=== PATIENT | female | born 1970 | race Caucasian/White ===

== ENCOUNTER → 2017-12-13 | Outpatient (CLI) | payer BC, OTHER ==
--- NOTE | 2017-12-13 10:58 | RAD ---
Pelvic ultrasound, 12/13/2017: History: Heavy periods with clotting Transabdominal and transvaginal scans were obtained. The uterus measures 10.7 x 6.4 x 4.6 cm. The central uterine echo complex measures 7 mm. There are several small nabothian cysts in the cervical region. The left ovary is within normal limits in size. It contains a single small 1 cm follicular cyst. There is blood flow in the left ovary. The right ovary is enlarged. It contains a cluster of 3 cysts. These cysts measure approximately 3.6 cm, 2.5 cm and 2.6 cm. No mural irregularity or suspicious features are seen. There is blood flow in the right ovary. The adnexal regions are otherwise unremarkable. No free fluid is evident in the pelvis. IMPRESSION: Multiple small right ovarian cysts.
== END | disposition home or self-care (01) ==
LOC: US 08:52
PROVIDERS: ATTEND Family Medicine
DX: N83.201 Unspecified ovarian cyst, right side (principal); N83.292 Other ovarian cyst, left side; N88.8 Other specified noninflammatory disorders of cervix uteri
CPT/HCPCS: 76830; 76856

== ENCOUNTER → 2018-05-13 | Outpatient (CLI) | payer BC, OTHER ==
--- NOTE | 2018-05-26 15:52 | RAD ---
DATE: May 13, 2018 EXAM: MAMMO KARINA SCREENING BILATERAL HISTORY: Screening study. COMPARISON: 2014 and 2016 This study was interpreted with the benefit of Computerized Aided Detection (CAD). 2-D digital mammographic views of both breasts were performed in the CC and MLO projections. 3-D digital tomosynthesis images of both breasts were performed in the CC and MLO projections and reviewed on a computer workstation. FINDINGS: Breast Density: SCATTERED The breast parenchyma shows scattered fibroglandular densities. Breast parenchyma level B.. There are no dominant suspicious masses, suspicious microcalcifications or evidence of architectural distortion. IMPRESSION: No mammographic indicators for malignancy. BI-RADS CATEGORY: 1 NEGATIVE RECOMMENDED FOLLOW-UP: 12M 12 MONTH FOLLOW-UP PQRS compliance statement: Patient information was entered into a reminder system with a target due date May 14, 2019 for the next mammogram. Mammography is a sensitive method for finding small breast cancers, but it does not detect them all and is not a substitute for careful clinical examination. A negative mammogram does not negate a clinically suspicious finding and should not result in delay in biopsying a clinically suspicious abnormality. "Our facility is accredited by the [employer] Mammography Program." The patient's breast density may affect the ability of mammography to detect breast cancer. There are 4 categories of breast density, A, B, C and D. Breast density A means that most of the breast tissue is replaced with adipose tissue and therefore is not dense. Breast density B means that the breast tissue is mildly dense and scattered. Breast density C means that the breast tissue is heterogeneously dense. Breast density D means that the breast tissue is very dense. Breast densities especially C and D may decrease the sensitivity of mammography to detect breast cancer. Therefore, the patient may benefit from 3-D breast mammography (3D breast tomography) as a part of their screening mammogram. Insurance may or may not pay for this additional imaging. The patient's breast density based on today's mammogram is category B.
== END | disposition home or self-care (01) ==
LOC: MAMMO 08:10
PROVIDERS: ATTEND Family Medicine
DX: Z12.31 Encounter for screening mammogram for malignant neoplasm of breast (principal)
CPT/HCPCS: 77063; 77067

== ENCOUNTER 2019-01-10 18:00 | Emergency (ER) | payer BC, OTHER ==
[~2019-01-10] VITALS: Ht 170.2 cm; Wt 84.0 kg
--- NOTE | 2019-01-10 18:05 | ED.ADGEN ---
Past History Past Medical History: Sinusitis Past Surgical History: Lumbar Laminectomy Adult General Chief Complaint Chief Complaint ".. I am having a headache, I probably only had 5 headaches in my life...this one woke me up at 4:30 in the morning...I ve had it all day.. even took some Excedrin..." HPI HPI Patient is a 48 year old female who presents with above hx and complaints of frontal headache since 4:30 Am. Pt. not had previous hx of chronic headaches. No travel, ill contacts, fever, chills or immunosuppression. Pt. follows with Dr. Meier. Review of Systems Review of Systems Constitutional: Denies fever or chills [] Eyes: Denies change in visual acuity, redness, or eye pain [] HENT: Denies nasal congestion or sore throat [] Respiratory: Denies cough or shortness of breath [] Cardiovascular: No additional information not addressed in HPI [] GI: Denies abdominal pain, nausea, vomiting, bloody stools or diarrhea [] : Denies dysuria or hematuria [] Musculoskeletal: Denies back pain or joint pain [] Integument: Denies rash or skin lesions [] Neurologic: Complaints of headache, denies focal weakness or sensory changes [] Endocrine: Denies polyuria or polydipsia [] All other systems were reviewed and found to be within normal limits, except as documented in this note. Family History Family History Non-contributory Current Medications Current Medications Current Medications Medications (Trade) Dose Ordered Sig/Tania Start Time Stop Time Status Last Admin Dose Admin Acyclovir Sodium (Zovirax) 500 mg STK-MED ONCE 01/11/19 01:13 01/11/19 01:14 DC Acyclovir Sodium 1000 mg/Dextrose 270 ml @ 270 mls/hr Q8HRS 01/11/19 06:00 01/11/19 06:00 DC 01/11/19 01:20 270 MLS/HR Ceftriaxone Sodium 1 gm/ Sodium Chloride 50 ml @ 100 mls/hr 1X ONCE 01/11/19 01:30 01/11/19 01:43 DC 01/11/19 01:30 100 MLS/HR Ceftriaxone Sodium (Rocephin) 1 gm STK-MED ONCE 01/11/19 00:01 01/11/19 00:02 DC Cephalexin HCl (Keflex) 250 mg 1X ONCE 01/10/19 23:00 01/10/19 23:10 DC Dextrose 250 ml @ As Directed STK-MED ONCE 01/11/19 01:13 01/11/19 01:14 DC Fentanyl Citrate (Fentanyl 2ml Vial) 50 mcg 1X ONCE 01/10/19 23:00 01/10/19 23:10 DC 01/10/19 23:04 50 MCG Ketorolac Tromethamine (Toradol 30mg Vial) 30 mg 1X ONCE 01/10/19 20:15 01/10/19 20:16 DC 01/10/19 23:03 30 MG Lidocaine HCl 20 ml 1X ONCE 01/10/19 23:15 01/10/19 23:16 DC Methylprednisolone Sodium Succinate (SOLU-Medrol 40MG VIAL) 40 mg 1X ONCE 01/10/19 20:15 01/10/19 20:16 DC 01/10/19 20:35 40 MG Morphine Sulfate (Morphine 2mg Syringe) 2 mg 1X ONCE 01/10/19 23:45 01/10/19 23:46 DC Morphine Sulfate (Morphine 4mg Syringe) 4 mg 1X ONCE 01/10/19 23:45 01/10/19 23:46 DC 01/11/19 00:12 4 MG Ondansetron HCl (Zofran) 8 mg 1X ONCE 01/10/19 18:30 01/10/19 18:34 DC 01/10/19 18:51 8 MG Sodium Chloride 50 ml @ As Directed STK-MED ONCE 01/11/19 00:01 01/11/19 00:02 DC Vancomycin HCl (Vancomycin) 1 gm STK-MED ONCE 01/11/19 00:01 01/11/19 00:02 DC Vancomycin HCl 1 gm/Sodium Chloride 250 ml @ 250 mls/hr 1X ONCE 01/10/19 23:45 01/11/19 00:44 DC 01/11/19 00:12 250 MLS/HR Allergies Allergies Allergies Coded Allergies Type Severity Reaction Last Updated Verified Penicillins Allergy Unknown 01/10/19 Yes Physical Exam Physical Exam Constitutional: , no acute distress, non-toxic appearance. [] HENT: Normocephalic, atraumatic, bilateral external ears normal, oropharynx moist, no oral exudates, nose normal. [] Eyes: PERRLA, EOMI, conjunctiva normal, no discharge. [] Neck: Normal range of motion, no tenderness, supple, no stridor. [] Cardiovascular:Heart rate regular rhythm, no murmur [] Lungs & Thorax: Bilateral breath sounds clear to auscultation [] Abdomen: Bowel sounds normal, soft, no tenderness, no masses, no pulsatile masses. [] Skin: Warm, dry, no erythema, no rash. [] Back: No tenderness, no CVA tenderness. [] Lumbar surgical scar Extremities: No tenderness, no cyanosis, no clubbing, ROM intact, no edema. [] Neurologic: Alert and oriented X 3, normal motor function, normal sensory function, no focal deficits noted. []DTR +2-3 Brachial and patella. Pt. riveter hand equal. Rt. hand dominate. Psychologic: Affect anxious, judgement normal, mood normal. [] Current Patient Data Vital Signs Vital Signs Date Time Temp Pulse Resp B/P (MAP) Pulse Ox O2 Delivery O2 Flow Rate FiO2 01/11/19 00:20 68 24 128/76 (93) 98 Room Air 01/10/19 18:06 97.7 Lab Results Laboratory Tests Test 01/10/19 18:42 01/10/19 19:19 01/10/19 21:48 01/10/19 22:18 White Blood Count 6.4 x10^3/uL (4.0-11.0) Red Blood Count 4.32 x10^6/uL (3.50-5.40) Hemoglobin 10.2 g/dL (12.0-15.5) L Hematocrit 32.5 % (36.0-47.0) L Mean Corpuscular Volume 75 fL (79-100) L Mean Corpuscular Hemoglobin 24 pg (25-35) L Mean Corpuscular Hemoglobin Concent 31 g/dL (31-37) Red Cell Distribution Width 15.5 % (11.5-14.5) H Platelet Count 304 x10^3/uL (140-400) Neutrophils (%) (Auto) 60 % (31-73) Lymphocytes (%) (Auto) 30 % (24-48) Monocytes (%) (Auto) 8 % (0-9) Eosinophils (%) (Auto) 1 % (0-3) Basophils (%) (Auto) 2 % (0-3) Neutrophils # (Auto) 3.8 x10^3uL (1.8-7.7) Lymphocytes # (Auto) 1.9 x10^3/uL (1.0-4.8) Monocytes # (Auto) 0.5 x10^3/uL (0.0-1.1) Eosinophils # (Auto) 0.1 x10^3/uL (0.0-0.7) Basophils # (Auto) 0.1 x10^3/uL (0.0-0.2) Erythrocyte Sedimentation Rate 18 (0-25) Troponin I Quantitative < 0.017 ng/mL (0-0.055) Prothrombin Time 10.8 SEC (9.4-11.4) Prothrombin Time INR 1.1 (0.9-1.1) PTT 25 SEC (23-33) Sodium Level 141 mmol/L (136-145) Potassium Level 3.8 mmol/L (3.5-5.1) Chloride Level 105 mmol/L (98-107) Carbon Dioxide Level 27 mmol/L (21-32) Anion Gap 9 (6-14) Blood Urea Nitrogen 13 mg/dL (7-20) Creatinine 0.8 mg/dL (0.6-1.0) Estimated GFR (Cockcroft-Gault) 75.9 Glucose Level 90 mg/dL (70-99) Calcium Level 8.8 mg/dL (8.5-10.1) Magnesium Level 2.1 mg/dL (1.8-2.4) Creatine Kinase 50 U/L (26-192) HM-Rek-R-Type Natriuretic Peptide 145 pg/mL (0-124) H Urine Collection Type Unknown Urine Color Yellow Urine Clarity Hazy Urine pH 6.0 Urine Specific [place] 1.015 Urine Protein Neg (NEG-TRACE) Urine Glucose (UA) Neg mg/dL (NEG) Urine Ketones (Stick) 15 mg/dL (NEG) Urine Blood Mod (NEG) Urine Nitrite Neg (NEG) Urine Bilirubin Neg (NEG) Urine Urobilinogen Dipstick 0.2 mg/dL (0.2 mg/dL) Urine Leukocyte Esterase Neg (NEG) Urine RBC Occ /HPF (0-2) Urine WBC 0 /HPF (0-4) Urine Squamous Epithelial Cells Occ /LPF Urine Bacteria 0 /HPF (0-FEW) Urine Opiates Screen Neg (NEG) Urine Methadone Screen Neg (NEG) Urine Barbiturates Neg (NEG) Urine Phencyclidine Screen Neg (NEG) Urine Amphetamine/Methamphetamine Neg (NEG) Urine Benzodiazepines Screen Neg (NEG) Urine Cocaine Screen Neg (NEG) Urine Cannabinoids Screen Neg (NEG) Urine Ethyl Alcohol Neg (NEG) CSF Tube Number 4 CSF Volume 11.0 CSF Color Colorless CSF Clarity Clear CSF WBC 4 CSF RBC 12 CSF Glucose 57 mg/dL (37-70) CSF Total Protein 30.8 mg/dL (15.0-45.0) Microbiology 01/10/19 Gram Stain - Final, Complete Microbiology 01/10/19 Gram Stain - Final, Complete EKG EKG My interpretation of EKG shows a sinus 70, no acute morphology. [] Radiology/Procedures Radiology/Procedures My interpretation of CT of head shows no shift, mass, edema, bleed, or fracture. My interpretation of chest x-ray shows findings. Lumbar film shows prior fix ation L4-S1 L5 S1 with sacral iliac fixation.[] Course & Med Decision Making Course & Med Decision Making Pertinent Labs and Imaging studies reviewed. (See chart for details) Procedure note- spinal tap- reviewed risk and benefits of procedure. Prepped area of L1-2 and 3 with Betadine and sterile draping. Sterile technique used with gown and mask gloves facemask. L3 interspace obtained aliquots of spinal fluid. Opening pressure was 30 with pleural variation of 2. Discussed presentation, testing and tx. plan with - [facility]. Transfer to [facility] for possible Cerebral angiogram, MRI With and Without contrast. [] Final Impression Final Impression 1. Headache[] 2. Microcytic Hypochromic Anemia 3. Spinal WBC 4/12 RBC 4. Sphenoid Sinusitis Dragon Disclaimer Dragon Disclaimer This electronic medical record was generated, in whole or in part, using a voice recognition dictation system. Discharge Summary Visit Information Final Diagnosis Problems Medical Problems: (1) Headache Status: Acute (2) Sphenoid sinusitis Status: Acute Brief Hospital Course Allergies Allergies Coded Allergies Type Severity Reaction Last Updated Verified Penicillins Allergy Unknown 01/10/19 Yes Vital Signs Vital Signs Date Time Temp Pulse Resp B/P (MAP) Pulse Ox O2 Delivery O2 Flow Rate FiO2 01/11/19 00:20 68 24 128/76 (93) 98 Room Air 01/10/19 18:06 97.7 Lab Results Laboratory Tests Test 01/10/19 18:42 01/10/19 19:19 01/10/19 21:48 01/10/19 22:18 White Blood Count 6.4 x10^3/uL (4.0-11.0) Red Blood Count 4.32 x10^6/uL (3.50-5.40) Hemoglobin 10.2 g/dL (12.0-15.5) Hematocrit 32.5 % (36.0-47.0) Mean Corpuscular Volume 75 fL (79-100) Mean Corpuscular Hemoglobin 24 pg (25-35) Mean Corpuscular Hemoglobin Concent 31 g/dL (31-37) Red Cell Distribution Width 15.5 % (11.5-14.5) Platelet Count 304 x10^3/uL (140-400) Neutrophils (%) (Auto) 60 % (31-73) Lymphocytes (%) (Auto) 30 % (24-48) Monocytes (%) (Auto) 8 % (0-9) Eosinophils (%) (Auto) 1 % (0-3) Basophils (%) (Auto) 2 % (0-3) Neutrophils # (Auto) 3.8 x10^3uL (1.8-7.7) Lymphocytes # (Auto) 1.9 x10^3/uL (1.0-4.8) Monocytes # (Auto) 0.5 x10^3/uL (0.0-1.1) Eosinophils # (Auto) 0.1 x10^3/uL (0.0-0.7) Basophils # (Auto) 0.1 x10^3/uL (0.0-0.2) Erythrocyte Sedimentation Rate 18 (0-25) Troponin I Quantitative < 0.017 ng/mL (0-0.055) Prothrombin Time 10.8 SEC (9.4-11.4) Prothromb Time International Ratio 1.1 (0.9-1.1) Activated Partial Thromboplast Time 25 SEC (23-33) Sodium Level 141 mmol/L (136-145) Potassium Level 3.8 mmol/L (3.5-5.1) Chloride Level 105 mmol/L (98-107) Carbon Dioxide Level 27 mmol/L (21-32) Anion Gap 9 (6-14) Blood Urea Nitrogen 13 mg/dL (7-20) Creatinine 0.8 mg/dL (0.6-1.0) Estimated GFR (Cockcroft-Gault) 75.9 Glucose Level 90 mg/dL (70-99) Calcium Level 8.8 mg/dL (8.5-10.1) Magnesium Level 2.1 mg/dL (1.8-2.4) Creatine Kinase 50 U/L (26-192) NB-Qsh-T-Type Natriuretic Peptide 145 pg/mL (0-124) Urine Collection Type Unknown Urine Color Yellow Urine Clarity Hazy Urine pH 6.0 Urine Specific [place] 1.015 Urine Protein Neg (NEG-TRACE) Urine Glucose (UA) Neg mg/dL (NEG) Urine Ketones (Stick) 15 mg/dL (NEG) Urine Blood Mod (NEG) Urine Nitrite Neg (NEG) Urine Bilirubin Neg (NEG) Urine Urobilinogen Dipstick 0.2 mg/dL (0.2 mg/dL) Urine Leukocyte Esterase Neg (NEG) Urine RBC Occ /HPF (0-2) Urine WBC 0 /HPF (0-4) Urine Squamous Epithelial Cells Occ /LPF Urine Bacteria 0 /HPF (0-FEW) Urine Opiates Screen Neg (NEG) Urine Methadone Screen Neg (NEG) Urine Barbiturates Neg (NEG) Urine Phencyclidine Screen Neg (NEG) Urine Amphetamine/Methamphetamine Neg (NEG) Urine Benzodiazepines Screen Neg (NEG) Urine Cocaine Screen Neg (NEG) Urine Cannabinoids Screen Neg (NEG) Urine Ethyl Alcohol Neg (NEG) CSF Tube Number 4 CSF Volume 11.0 CSF Color Colorless CSF Clarity Clear CSF WBC 4 CSF RBC 12 CSF Glucose 57 mg/dL (37-70) CSF Total Protein 30.8 mg/dL (15.0-45.0) Brief Hospital Course Ms. Francis is a 48 old female who presented with intractable headache acute on set. Transfer to [facility]- for Angiogram,MRI. Discharge Information Condition at Discharge: Stable Dischare Medications Current Medications Ondansetron HCl (Zofran) 8 mg 1X ONCE IV Last administered on 01/10/19at 18:51; Admin Dose 8 MG; Start 01/10/19 at 18:30; Stop 01/10/19 at 18:34; Status DC Fentanyl Citrate (Fentanyl 2ml Vial) 75 mcg 1X ONCE IV Last administered on 01/10/19at 18:51; Admin Dose 75 MCG; Start 01/10/19 at 18:30; Stop 01/10/19 at 18:34; Status DC Fentanyl Citrate (Fentanyl 2ml Vial) 50 mcg 1X ONCE IV Last administered on 01/10/19at 19:40; Admin Dose 50 MCG; Start 01/10/19 at 19:45; Stop 01/10/19 at 19:46; Status DC Ketorolac Tromethamine (Toradol 30mg Vial) 30 mg 1X ONCE IV Last administered on 01/10/19at 23:03; Admin Dose 30 MG; Start 01/10/19 at 20:15; Stop 01/10/19 at 20:16; Status DC Ceftriaxone Sodium 1 gm/ Sodium Chloride 50 ml @ 100 mls/hr 1X ONCE IV Last administered on 01/10/19at 20:37; Admin Dose 100 MLS/HR; Start 01/10/19 at 20:15; Stop 01/10/19 at 20:44; Status DC Methylprednisolone Sodium Succinate (SOLU-Medrol 40MG VIAL) 40 mg 1X ONCE IV Last administered on 01/10/19at 20:35; Admin Dose 40 MG; Start 01/10/19 at 20:15; Stop 01/10/19 at 20:16; Status DC Sodium Chloride 50 ml @ As Directed STK-MED ONCE .ROUTE ; Start 01/10/19 at 20:29; Stop 01/10/19 at 20:30; Status DC Ceftriaxone Sodium (Rocephin) 1 gm STK-MED ONCE .ROUTE ; Start 01/10/19 at 20:30; Stop 01/10/19 at 20:31; Status DC Lidocaine HCl 20 ml 1X ONCE IJ ; Start 01/10/19 at 21:00; Stop 01/10/19 at 21:01; Status DC Fentanyl Citrate (Fentanyl 2ml Vial) 50 mcg 1X ONCE IV Last administered on 01/10/19at 21:06; Admin Dose 50 MCG; Start 01/10/19 at 21:00; Stop 01/10/19 at 21:01; Status DC Lidocaine HCl 20 ml 1X ONCE IJ ; Start 01/10/19 at 23:15; Stop 01/10/19 at 23:16; Status DC Cephalexin HCl (Keflex) 250 mg 1X ONCE PO ; Start 01/10/19 at 23:00; Stop 01/10/19 at 23:10; Status DC Fentanyl Citrate (Fentanyl 2ml Vial) 50 mcg 1X ONCE IV Last administered on 01/10/19at 23:04; Admin Dose 50 MCG; Start 01/10/19 at 23:00; Stop 01/10/19 at 23:10; Status DC Morphine Sulfate (Morphine 2mg Syringe) 2 mg 1X ONCE IV ; Start 01/10/19 at 23:45; Stop 01/10/19 at 23:46; Status DC Morphine Sulfate (Morphine 4mg Syringe) 4 mg 1X ONCE IV Last administered on 01/11/19at 00:12; Admin Dose 4 MG; Start 01/10/19 at 23:45; Stop 01/10/19 at 23:46; Status DC Ceftriaxone Sodium 1 gm/ Sodium Chloride 50 ml @ 100 mls/hr 1X ONCE IV ; Start 01/10/19 at 23:45; Stop 01/11/19 at 00:22; Status DC Acyclovir Sodium 1000 mg/Dextrose 270 ml @ 270 mls/hr Q8HRS IV Last administered on 01/11/19at 01:20; Admin Dose 270 MLS/HR; Start 01/11/19 at 06:00; Stop 01/11/19 at 06:00; Status DC Vancomycin HCl 1 gm/Sodium Chloride 250 ml @ 250 mls/hr 1X ONCE IV Last administered on 01/11/19at 00:12; Admin Dose 250 MLS/HR; Start 01/10/19 at 23:45; Stop 01/11/19 at 00:44; Status DC Sodium Chloride 250 ml @ As Directed STK-MED ONCE .ROUTE ; Start 01/11/19 at 00:01; Stop 01/11/19 at 00:02; Status DC Sodium Chloride 50 ml @ As Directed STK-MED ONCE .ROUTE ; Start 01/11/19 at 00:01; Stop 01/11/19 at 00:02; Status DC Vancomycin HCl (Vancomycin) 1 gm STK-MED ONCE .ROUTE ; Start 01/11/19 at 00:01; Stop 01/11/19 at 00:02; Status DC Ceftriaxone Sodium (Rocephin) 1 gm STK-MED ONCE .ROUTE ; Start 01/11/19 at 00:01; Stop 01/11/19 at 00:02; Status DC Acyclovir Sodium (Zovirax) 500 mg STK-MED ONCE IV ; Start 01/11/19 at 01:13; Stop 01/11/19 at 01:14; Status DC Dextrose 250 ml @ As Directed STK-MED ONCE IV ; Start 01/11/19 at 01:13; Stop 01/11/19 at 01:14; Status DC Ceftriaxone Sodium 1 gm/ Sodium Chloride 50 ml @ 100 mls/hr 1X ONCE IV Last administered on 01/11/19at 01:30; Admin Dose 100 MLS/HR; Start 01/11/19 at 01:30; Stop 01/11/19 at 01:43; Status DC Active Scripts Active Keflex (Cephalexin) 500 Mg Capsule 500 Mg PO TID 10 Days Discharge Summary Visit Information Final Diagnosis Problems Medical Problems: (1) Headache Status: Acute (2) Sphenoid sinusitis Status: Acute Brief Hospital Course Allergies Allergies Coded Allergies Type Severity Reaction Last Updated Verified Penicillins Allergy Unknown 01/10/19 Yes Vital Signs Vital Signs Date Time Temp Pulse Resp B/P (MAP) Pulse Ox O2 Delivery O2 Flow Rate FiO2 01/11/19 00:20 68 24 128/76 (93) 98 Room Air 01/10/19 18:06 97.7 Lab Results Laboratory Tests Test 01/10/19 18:42 01/10/19 19:19 01/10/19 21:48 01/10/19 22:18 White Blood Count 6.4 x10^3/uL (4.0-11.0) Red Blood Count 4.32 x10^6/uL (3.50-5.40) Hemoglobin 10.2 g/dL (12.0-15.5) Hematocrit 32.5 % (36.0-47.0) Mean Corpuscular Volume 75 fL (79-100) Mean Corpuscular Hemoglobin 24 pg (25-35) Mean Corpuscular Hemoglobin Concent 31 g/dL (31-37) Red Cell Distribution Width 15.5 % (11.5-14.5) Platelet Count 304 x10^3/uL (140-400) Neutrophils (%) (Auto) 60 % (31-73) Lymphocytes (%) (Auto) 30 % (24-48) Monocytes (%) (Auto) 8 % (0-9) Eosinophils (%) (Auto) 1 % (0-3) Basophils (%) (Auto) 2 % (0-3) Neutrophils # (Auto) 3.8 x10^3uL (1.8-7.7) Lymphocytes # (Auto) 1.9 x10^3/uL (1.0-4.8) Monocytes # (Auto) 0.5 x10^3/uL (0.0-1.1) Eosinophils # (Auto) 0.1 x10^3/uL (0.0-0.7) Basophils # (Auto) 0.1 x10^3/uL (0.0-0.2) Erythrocyte Sedimentation Rate 18 (0-25) Troponin I Quantitative < 0.017 ng/mL (0-0.055) Prothrombin Time 10.8 SEC (9.4-11.4) Prothromb Time International Ratio 1.1 (0.9-1.1) Activated Partial Thromboplast Time 25 SEC (23-33) Sodium Level 141 mmol/L (136-145) Potassium Level 3.8 mmol/L (3.5-5.1) Chloride Level 105 mmol/L (98-107) Carbon Dioxide Level 27 mmol/L (21-32) Anion Gap 9 (6-14) Blood Urea Nitrogen 13 mg/dL (7-20) Creatinine 0.8 mg/dL (0.6-1.0) Estimated GFR (Cockcroft-Gault) 75.9 Glucose Level 90 mg/dL (70-99) Calcium Level 8.8 mg/dL (8.5-10.1) Magnesium Level 2.1 mg/dL (1.8-2.4) Creatine Kinase 50 U/L (26-192) EC-Whd-R-Type Natriuretic Peptide 145 pg/mL (0-124) Urine Collection Type Unknown Urine Color Yellow Urine Clarity Hazy Urine pH 6.0 Urine Specific [place] 1.015 Urine Protein Neg (NEG-TRACE) Urine Glucose (UA) Neg mg/dL (NEG) Urine Ketones (Stick) 15 mg/dL (NEG) Urine Blood Mod (NEG) Urine Nitrite Neg (NEG) Urine Bilirubin Neg (NEG) Urine Urobilinogen Dipstick 0.2 mg/dL (0.2 mg/dL) Urine Leukocyte Esterase Neg (NEG) Urine RBC Occ /HPF (0-2) Urine WBC 0 /HPF (0-4) Urine Squamous Epithelial Cells Occ /LPF Urine Bacteria 0 /HPF (0-FEW) Urine Opiates Screen Neg (NEG) Urine Methadone Screen Neg (NEG) Urine Barbiturates Neg (NEG) Urine Phencyclidine Screen Neg (NEG) Urine Amphetamine/Methamphetamine Neg (NEG) Urine Benzodiazepines Screen Neg (NEG) Urine Cocaine Screen Neg (NEG) Urine Cannabinoids Screen Neg (NEG) Urine Ethyl Alcohol Neg (NEG) CSF Tube Number 4 CSF Volume 11.0 CSF Color Colorless CSF Clarity Clear CSF WBC 4 CSF RBC 12 CSF Glucose 57 mg/dL (37-70) CSF Total Protein 30.8 mg/dL (15.0-45.0) Brief Hospital Course Ms. Francis is a 48 old female who presented with intractable headache. Transfer to [facility] for angiogram and MRI Discharge Information Dischare Medications Current Medications Ondansetron HCl (Zofran) 8 mg 1X ONCE IV Last administered on 01/10/19 18:51; Admin Dose 8 MG; Start 01/10/19 at 18:30; Stop 01/10/19 at 18:34; Status DC Fentanyl Citrate (Fentanyl 2ml Vial) 75 mcg 1X ONCE IV Last administered on 01/10/19 18:51; Admin Dose 75 MCG; Start 01/10/19 at 18:30; Stop 01/10/19 at 18:34; Status DC Fentanyl Citrate (Fentanyl 2ml Vial) 50 mcg 1X ONCE IV Last administered on 01/10/19 19:40; Admin Dose 50 MCG; Start 01/10/19 at 19:45; Stop 01/10/19 at 19:46; Status DC Ketorolac Tromethamine (Toradol 30mg Vial) 30 mg 1X ONCE IV Last administered on 01/10/19at 23:03; Admin Dose 30 MG; Start 01/10/19 at 20:15; Stop 01/10/19 at 20:16; Status DC Ceftriaxone Sodium 1 gm/ Sodium Chloride 50 ml @ 100 mls/hr 1X ONCE IV Last administered on 01/10/19at 20:37; Admin Dose 100 MLS/HR; Start 01/10/19 at 20:15; Stop 01/10/19 at 20:44; Status DC Methylprednisolone Sodium Succinate (SOLU-Medrol 40MG VIAL) 40 mg 1X ONCE IV Last administered on 01/10/19at 20:35; Admin Dose 40 MG; Start 01/10/19 at 20:15; Stop 01/10/19 at 20:16; Status DC Sodium Chloride 50 ml @ As Directed STK-MED ONCE .ROUTE ; Start 01/10/19 at 20:29; Stop 01/10/19 at 20:30; Status DC Ceftriaxone Sodium (Rocephin) 1 gm STK-MED ONCE .ROUTE ; Start 01/10/19 at 20:30; Stop 01/10/19 at 20:31; Status DC Lidocaine HCl 20 ml 1X ONCE IJ ; Start 01/10/19 at 21:00; Stop 01/10/19 at 21:01; Status DC Fentanyl Citrate (Fentanyl 2ml Vial) 50 mcg 1X ONCE IV Last administered on 01/10/19at 21:06; Admin Dose 50 MCG; Start 01/10/19 at 21:00; Stop 01/10/19 at 21:01; Status DC Lidocaine HCl 20 ml 1X ONCE IJ ; Start 01/10/19 at 23:15; Stop 01/10/19 at 23:16; Status DC Cephalexin HCl (Keflex) 250 mg 1X ONCE PO ; Start 01/10/19 at 23:00; Stop 01/10/19 at 23:10; Status DC Fentanyl Citrate (Fentanyl 2ml Vial) 50 mcg 1X ONCE IV Last administered on 01/10/19at 23:04; Admin Dose 50 MCG; Start 01/10/19 at 23:00; Stop 01/10/19 at 23:10; Status DC Morphine Sulfate (Morphine 2mg Syringe) 2 mg 1X ONCE IV ; Start 01/10/19 at 23:45; Stop 01/10/19 at 23:46; Status DC Morphine Sulfate (Morphine 4mg Syringe) 4 mg 1X ONCE IV Last administered on 01/11/19at 00:12; Admin Dose 4 MG; Start 01/10/19 at 23:45; Stop 01/10/19 at 23:46; Status DC Ceftriaxone Sodium 1 gm/ Sodium Chloride 50 ml @ 100 mls/hr 1X ONCE IV ; Start 01/10/19 at 23:45; Stop 01/11/19 at 00:22; Status DC Acyclovir Sodium 1000 mg/Dextrose 270 ml @ 270 mls/hr Q8HRS IV Last administered on 01/11/19at 01:20; Admin Dose 270 MLS/HR; Start 01/11/19 at 06:00; Stop 5/5/19 at 06:00; Status DC Vancomycin HCl 1 gm/Sodium Chloride 250 ml @ 250 mls/hr 1X ONCE IV Last administered on 01/11/19at 00:12; Admin Dose 250 MLS/HR; Start 01/10/19 at 23:45; Stop 01/11/19 at 00:44; Status DC Sodium Chloride 250 ml @ As Directed STK-MED ONCE .ROUTE ; Start 01/11/19 at 00:01; Stop 01/11/19 at 00:02; Status DC Sodium Chloride 50 ml @ As Directed STK-MED ONCE .ROUTE ; Start 01/11/19 at 00:01; Stop 01/11/19 at 00:02; Status DC Vancomycin HCl (Vancomycin) 1 gm STK-MED ONCE .ROUTE ; Start 01/11/19 at 00:01; Stop 01/11/19 at 00:02; Status DC Ceftriaxone Sodium (Rocephin) 1 gm STK-MED ONCE .ROUTE ; Start 01/11/19 at 00:01; Stop 01/11/19 at 00:02; Status DC Acyclovir Sodium (Zovirax) 500 mg STK-MED ONCE IV ; Start 01/11/19 at 01:13; Stop 01/11/19 at 01:14; Status DC Dextrose 250 ml @ As Directed STK-MED ONCE IV ; Start 01/11/19 at 01:13; Stop 01/11/19 at 01:14; Status DC Ceftriaxone Sodium 1 gm/ Sodium Chloride 50 ml @ 100 mls/hr 1X ONCE IV Last administered on 01/11/19at 01:30; Admin Dose 100 MLS/HR; Start 01/11/19 at 01:30; Stop 01/11/19 at 01:43; Status DC Active Scripts Active Keflex (Cephalexin) 500 Mg Capsule 500 Mg PO TID 10 Days Dragon Disclaimer This chart was dictated in whole or in part using Voice Recognition software in a busy, high-work load, and often noisy Emergency Department environment. It may contain unintended and wholly unrecognized errors or omissions. Dragon Disclaimer This chart was dictated in whole or in part using Voice Recognition software in a busy, high-work load, and often noisy Emergency Department environment. It may contain unintended and wholly unrecognized errors or omissions. STORMY OQUENDO MD January 10, 2019 18:05
[2019-01-10] MEDS ORDERED: ONDANSETRON PF 4 MG/2 ML VIAL. IV ONE (18:30)
[2019-01-10 19:05] LABS: BASO # 0.1 x10^3/uL (0.0-0.2); BASO % 2 % (0-3); EOS # 0.1 x10^3/uL (0.0-0.7); EOS % 1 % (0-3); HEMATOCRIT 32.5 % (36.0-47.0); HEMOGLOBIN 10.2 g/dL (12.0-15.5); LYMPH # 1.9 x10^3/uL (1.0-4.8); LYMPH % 30 % (24-48); MEAN CORPUSCULAR HEMOGLOBIN 24 pg (25-35); MEAN CORPUSCULAR HGB CONC 31 g/dL (31-37); MEAN CORPUSCULAR VOLUME 75 fL (79-100); MONO # 0.5 x10^3/uL (0.0-1.1); MONO % 8 % (0-9); NEUT # 3.8 x10^3uL (1.8-7.7); NEUT % 60 % (31-73); PLATELET COUNT 304 x10^3/uL (140-400); RED BLOOD COUNT 4.32 x10^6/uL (3.50-5.40); RED CELL DISTRIBUTION WIDTH 15.5 % (11.5-14.5); WHITE BLOOD COUNT 6.4 x10^3/uL (4.0-11.0)
--- NOTE | 2019-01-10 19:31 | RAD ---
EXAM: Chest, 2 views. HISTORY: Headache. COMPARISON: None. FINDINGS: 2 views of the chest are obtained. There is no infiltrate, pleural effusion or pneumothorax. IMPRESSION: No acute pulmonary finding. Electronically signed by: Sharron Schwartz MD (01/10/2019 7:28 PM) [facility]
--- NOTE | 2019-01-10 19:33 | RAD ---
EXAM: Head and maxillofacial bone CT without contrast. HISTORY: Headache. TECHNIQUE: Computed tomographic images of the head and maxillofacial bones were obtained without contrast. *One or more of the following individualized dose reduction techniques were utilized for this examination: 1. Automated exposure control. 2. Adjustment of the mA and/or kV according to patient size. 3. Use of iterative reconstruction technique. COMPARISON: None. FINDINGS: Head: There is no hemorrhage. There is no mass effect or midline shift. The scruggs-white matter differential pattern is intact. No suspicious calvarial lesion is seen. The mastoid air cells are clear. Maxillofacial bones: There is and mild sphenoid sinus mucosal thickening. The ostiomeatal units are patent. There is mild leftward nasal septal deviation. There is no sinus opacification or air-fluid level. There is no abnormal sinus wall thickening or erosion. The orbits are unremarkable. The visualized portions of the cervical spine demonstrate no acute or suspicious osseous lesion. IMPRESSION: 1. No acute intracranial finding. 2. Mild sphenoid sinus disease. Electronically signed by: Sharron Schwartz MD (01/10/2019 7:30 PM) [facility]
[2019-01-10 19:53] LABS: CALCIUM 8.8 mg/dL (8.5-10.1); CREATININE 0.8 mg/dL (0.6-1.0); GFR 75.9; MAGNESIUM 2.1 mg/dL (1.8-2.4); POTASSIUM 3.8 mmol/L (3.5-5.1)
[2019-01-10 20:02] LABS: SEDIMENTATION RATE 18 (0-25)
[2019-01-10] MEDS ORDERED: CEPH-264 PO (20:08)
[2019-01-10] MEDS ORDERED: KETOROLAC 30 MG/ML VIAL. IV ONE (20:15)
[2019-01-10] MEDS ORDERED: methylPREDNISolone SOD SUCC PF 40 MG/ML VIAL. IV ONE (20:15)
[2019-01-10] MEDS ORDERED: IV NORMAL SALINE 50ML 50 ML ONE (20:29)
[2019-01-10] MEDS ORDERED: cefTRIAXone SODIUM 1 GM VIAL ONE (20:30)
[2019-01-10] MEDS ORDERED: LIDOCAINE 2% 20 ML VIAL. IJ ONE ×2 (21:00→23:15)
--- NOTE | 2019-01-10 21:52 | RAD ---
Three view lumbosacral spine History: Pain AP, coned-down lateral and lateral views of the lumbosacral spine were obtained. There has been prior fusion of L4-S1 with left-sided protrusion posterior fusion rods. There is ray cages at L4-5 and L5-S1. There are 4 threaded screws to the right sacroiliac. The vertebral bodies are aligned. There is no loss of vertebral body stature. Intervertebral disc heights are preserved. Impression: Postsurgical changes. No acute findings. End Impression Electronically signed by: Reno Brown III, MD (01/10/2019 9:49 PM) [id number]
[2019-01-10 22:10] LABS: BACTERIA,URINE 0 /HPF (0-FEW); BILIRUBIN,URINE NEG (NEG); CLARITY,URINE HAZY; COLOR,URINE YELLOW; GLUCOSE,URINE NEG (NEG); NITRITE,URINE NEG (NEG); RBC,URINE OCC /HPF (0-2); SQUAMOUS EPITHELIAL CELL,UR OCC /LPF; UROBILINOGEN,URINE 0.2 mg/dL (0.2 mg/dL); WBC,URINE 0 /HPF (0-4)
[2019-01-10 22:14] LABS: AMPHETAMINE/METHAMPHETAMINE NEG (NEG); BARBITURATES NEG (NEG); BENZODIAZEPINES NEG (NEG); CANNABINOIDS NEG (NEG); COCAINE NEG (NEG); METHADONE NEG (NEG); OPIATES NEG (NEG); PHENCYCLIDINE NEG (NEG)
[2019-01-10] MEDS ORDERED: CEPHALEXIN 250 MG CAPSULE PO ONE (23:00)
[2019-01-10 23:07] LABS: CSF CLARITY CLEAR; CSF COLOR COLORLESS; CSF RBC COUNT 12; CSF WBC COUNT 4
[2019-01-10] MEDS ORDERED: VANCOMYCIN 1 GM in IV NORMAL SALINE 250ML 250 ML IV ONE (23:45)
[2019-01-10] MEDS ORDERED: MORPHINE SULFATE 2 MG/ML DISP.SYRIN. IV ONE (23:45)
[2019-01-10] MEDS ORDERED: MORPHINE SULFATE 4 MG/ML DISP.SYRIN. IV ONE (23:45)
[2019-01-10 23:49] LABS: CSF PROTEIN 30.8 mg/dL (15.0-45.0)
[2019-01-11] MEDS ORDERED: IV NORMAL SALINE 50ML 50 ML ONE (00:01)
[2019-01-11] MEDS ORDERED: VANCOMYCIN 1 GM VIAL. ONE (00:01)
[2019-01-11] MEDS ORDERED: cefTRIAXone SODIUM 1 GM VIAL ONE (00:01)
[2019-01-11] MEDS ORDERED: IV NORMAL SALINE 250ML 250 ML ONE (00:01)
[2019-01-11 00:20] VITALS: BP 128/76
[2019-01-11] MEDS ORDERED: IV DEXTROSE 5% 250 ML IV ONE (01:13)
[2019-01-11] MEDS ORDERED: ACYCLOVIR SODIUM 500 MG/10 ML VIAL IV ONE (01:13)
[2019-01-11] MEDS ORDERED: ACYCLOVIR SODIUM 1,000 MG in IV DEXTROSE 5% 250 ML IV SCH (06:00)
--- NOTE | 2019-01-12 06:55 | EKG ---
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
[2019-01-20 07:11] LABS: VIRAL CULT FINAL No virus isolated. (.)
== END 2019-01-11 01:38 | disposition short-term general hospital (02) ==
LOC: ER 18:00
DX: R51 Headache (principal); D50.9 Iron deficiency anemia, unspecified; J32.3 Chronic sphenoidal sinusitis; Z88.0 Allergy status to penicillin
CPT/HCPCS: 36415; 62270; 70450; 70486; 71046; 72100; 80048; 80307; 81001; 82550; 82945; 83735; 83880; 84157; 84484; 85025; 85610; 85651; 85730; 87040; 87070; 87102; 87252; 87327; 87449; 89051; 93005; 96365; 96367; 96375; 96376; 99285; J0133; J0696; J1885; J2270; J2405; J2920; J3010; J3370; J7050

== ENCOUNTER 2020-01-05 13:02 | Emergency (ER) | payer BC, OTHER ==
[~2020-01-05] VITALS: Ht 170.2 cm; Wt 84.0 kg
[~2020-01-05 13:02] MED LIST: CEPH-264 PO
[2020-01-05 13:43] LABS: BASO # 0.1 x10^3/uL (0.0-0.2); BASO % 3 % (0-3); EOS # 0.1 x10^3/uL (0.0-0.7); EOS % 4 % (0-3); HEMATOCRIT 29.3 % (36.0-47.0); HEMOGLOBIN 9.1 g/dL (12.0-15.5); LYMPH # 1.8 x10^3/uL (1.0-4.8); LYMPH % 50 % (24-48); MEAN CORPUSCULAR HEMOGLOBIN 25 pg (25-35); MEAN CORPUSCULAR HGB CONC 31 g/dL (31-37); MEAN CORPUSCULAR VOLUME 79 fL (79-100); MONO # 0.4 x10^3/uL (0.0-1.1); MONO % 10 % (0-9); NEUT # 1.2 x10^3uL (1.8-7.7); NEUT % 34 % (31-73); PLATELET COUNT 260 x10^3/uL (140-400); RED BLOOD COUNT 3.72 x10^6/uL (3.50-5.40); RED CELL DISTRIBUTION WIDTH 15.5 % (11.5-14.5); WHITE BLOOD COUNT 3.6 x10^3/uL (4.0-11.0)
[2020-01-05 13:53] LABS: CALCIUM 8.3 mg/dL (8.5-10.1); CREATININE 0.7 mg/dL (0.6-1.0); GFR 88.2; POTASSIUM 3.8 mmol/L (3.5-5.1)
[2020-01-05] MEDS ORDERED: IV NORMAL SALINE 1,000ML 1,000 ML IV ONE (14:00)
[2020-01-05 14:02] LABS: ALBUMIN 3.2 g/dL (3.4-5.0); ALBUMIN/GLOBULIN RATIO 0.9 (1.0-1.7); TOTAL BILIRUBIN 0.4 mg/dL (0.2-1.0); TOTAL PROTEIN 6.7 g/dL (6.4-8.2)
--- NOTE | 2020-01-05 14:14 | PHYS DOC ---
Past History Past Medical History: Kidney Infection, Kidney Stones, Sinusitis, Other Additional Past Medical Histor: Chronic back pain Past Surgical History: Lumbar Laminectomy Alcohol Use: None Drug Use: None General Adult EDM: Chief Complaint: ABDOMINAL PAIN HPI: HPI: Patient is a 49-year-old female who presented to ER today for evaluation of left flank pain started earlier this morning. Patient denies any nausea or vomiting. Patient has history of kidney stone, she feels like she another kidney stone. Patient denies any blood in her urine. Patient denies any cough or fever. Review of Systems: Review of Systems: Constitutional: Denies fever or chills Eyes: Denies change in visual acuity HENT: Denies nasal congestion or sore throat Respiratory: Denies cough or shortness of breath Cardiovascular: Denies chest pain or edema GI: Positive for left flank, left side abdominal pain, no nausea, vomiting, bloody stools or diarrhea : Denies dysuria Musculoskeletal: Denies back pain or joint pain Integument: Denies rash Neurologic: Denies headache, focal weakness or sensory changes Endocrine: Denies polyuria or polydipsia Lymphatic: Denies swollen glands Psychiatric: Denies depression or anxiety Heart Score: Risk Factors: Risk Factors: DM, Current or recent (<one month) smoker, HTN, HLP, family history of CAD, obesity. Risk Scores: Score 0 - 3: 2.5% MACE over next 6 weeks - Discharge Home Score 4 - 6: 20.3% MACE over next 6 weeks - Admit for Clinical Observation Score 7 - 10: 72.7% MACE over next 6 weeks - Early Invasive Strategies Current Medications: Current Meds: Current Medications Medications (Trade) Dose Ordered Sig/Tania Start Time Stop Time Status Last Admin Dose Admin Ketorolac Tromethamine (Toradol 30mg Vial) 30 mg 1X ONCE 01/05/20 14:15 01/05/20 14:16 01/05/20 14:06 30 MG Sodium Chloride 1,000 ml @ 1,000 mls/hr 1X ONCE 01/05/20 14:00 01/05/20 14:59 01/05/20 14:00 1,000 MLS/HR Allergies: Allergies: Allergies Coded Allergies Type Severity Reaction Last Updated Verified Penicillins Allergy Unknown 01/10/19 Yes Physical Exam: PE: Constitutional: Well developed, well nourished, no acute distress, non-toxic appearance. [] HENT: Normocephalic, atraumatic, bilateral external ears normal, oropharynx moist, no oral exudates, nose normal. [] Eyes: PERRLA, EOMI, conjunctiva normal, no discharge. [] Neck: Normal range of motion, no tenderness, supple, no stridor. [] Cardiovascular:Heart rate regular rhythm, no murmur [] Lungs & Thorax: Bilateral breath sounds clear to auscultation [] Abdomen: Bowel sounds normal, soft, no tenderness, no masses, no pulsatile masses. [] Skin: Warm, dry, no erythema, no rash. [] Back: No tenderness, no CVA tenderness. [] Extremities: No tenderness, no cyanosis, no clubbing, ROM intact, no edema. [] Neurologic: Alert and oriented X 3, normal motor function, normal sensory function, no focal deficits noted. [] Psychologic: Affect normal, judgement normal, mood normal. [] Current Patient Data: Labs: Laboratory Tests Test 01/05/20 13:27 White Blood Count 3.6 x10^3/uL (4.0-11.0) L Red Blood Count 3.72 x10^6/uL (3.50-5.40) Hemoglobin 9.1 g/dL (12.0-15.5) L Hematocrit 29.3 % (36.0-47.0) L Mean Corpuscular Volume 79 fL (79-100) Mean Corpuscular Hemoglobin 25 pg (25-35) Mean Corpuscular Hemoglobin Concent 31 g/dL (31-37) Red Cell Distribution Width 15.5 % (11.5-14.5) H Platelet Count 260 x10^3/uL (140-400) Neutrophils (%) (Auto) 34 % (31-73) Lymphocytes (%) (Auto) 50 % (24-48) H Monocytes (%) (Auto) 10 % (0-9) H Eosinophils (%) (Auto) 4 % (0-3) H Basophils (%) (Auto) 3 % (0-3) Neutrophils # (Auto) 1.2 x10^3uL (1.8-7.7) L Lymphocytes # (Auto) 1.8 x10^3/uL (1.0-4.8) Monocytes # (Auto) 0.4 x10^3/uL (0.0-1.1) Eosinophils # (Auto) 0.1 x10^3/uL (0.0-0.7) Basophils # (Auto) 0.1 x10^3/uL (0.0-0.2) Sodium Level 139 mmol/L (136-145) Potassium Level 3.8 mmol/L (3.5-5.1) Chloride Level 104 mmol/L (98-107) Carbon Dioxide Level 27 mmol/L (21-32) Anion Gap 8 (6-14) Blood Urea Nitrogen 12 mg/dL (7-20) Creatinine 0.7 mg/dL (0.6-1.0) Estimated GFR (Cockcroft-Gault) 88.2 BUN/Creatinine Ratio 17 (6-20) Glucose Level 91 mg/dL (70-99) Calcium Level 8.3 mg/dL (8.5-10.1) L Total Bilirubin 0.4 mg/dL (0.2-1.0) Aspartate Amino Transferase (AST) 25 U/L (15-37) Alanine Aminotransferase (ALT) 40 U/L (14-59) Alkaline Phosphatase 57 U/L (46-116) Total Protein 6.7 g/dL (6.4-8.2) Albumin 3.2 g/dL (3.4-5.0) L Albumin/Globulin Ratio 0.9 (1.0-1.7) L Lipase 144 U/L (73-393) Vital Signs: Vital Signs Date Time Temp Pulse Resp B/P (MAP) Pulse Ox O2 Delivery O2 Flow Rate FiO2 01/05/20 13:08 98.0 74 18 118/70 (86) 100 Room Air EKG: EKG: [] Radiology/Procedures: Radiology/Procedures: [][address] [address] IMAGING REPORT Signed PATIENT: ZENIA SY LACCOUNT: [id number] : 1970 LOCATION: ER AGE: 49 SEX: F EXAM STATUS: REG ER ORD. PHYSICIAN: BRAIN KEARNEY DO REASON: left flank pain, hx of kidney stone PROCEDURE: CT ABDOMEN PELVIS WO CONTRAST Examination: CT of the abdomen pelvis without contrast HISTORY: History of left flank pain COMPARISON: None available Technique: Axial CT images of the abdomen pelvis were performed without contrast. Coronal and Sagittal reformats performed. Exposure: One or more of the following individualized dose reduction techniques were utilized for this examination: 1. Automated exposure control 2. Adjustment of the mA and/or kV according to patient size 3. Use of iterative reconstruction technique FINDINGS: Minimal bibasilar lung atelectasis. No evidence of free air identified. The evaluation of the solid organs is limited due to lack of IV contrast. The evaluation of bowel is limited due to lack of oral contrast. The noncontrasted liver, spleen, adrenals grossly appears unremarkable. Cholecystectomy clips identified. The stomach is mildly distended with visualized pancreas grossly appears unremarkable. The small bowel is nondilated. The appendix is normal. Feces and gas noted in the colon. The urinary bladder is mildly distended. No evidence of intraluminal system calculi or hydronephrosis identified. Cystic structure identified in the right adnexa measuring 3.2 cm in the right adnexa. Lumbar hardware is identified. Mild degenerative disease identified in the lumbar spine. Screws identified transfixing the right SI joint, left sacrum. IMPRESSION: 1. No evidence of intrarenal collecting system calculi or hydronephrosis. 2. 3.2 cm cystic structure identified in the right adnexa could be a right ovarian cyst or cystic lesion. Recommend ultrasound pelvis for better evaluation. Electronically signed by: David Mccrary MD (01/05/2020 2:41 PM) [id number] DICTATED AND SIGNED BY: DAVID MCCRARY MD DATE: 01/05/20 1441 CC: LEONARDO ESPINOSA MD; BRAIN KEARNEY DO ~ [address] [address] IMAGING REPORT Signed PATIENT: ZENIA SY LACCOUNT: [id number] : 1970 LOCATION: ER AGE: 49 SEX: F EXAM STATUS: REG ER ORD. PHYSICIAN: BRAIN KEARNEY DO REASON: abdominal pain, right adnexa mass noted on CT scan today PROCEDURE: US PELVIS Exam: Ultrasound pelvis Indication: Abdominal pain, right adnexal mass noted on CT scan today Technique: Real-time grayscale and color Doppler images of the pelvis were obtained by the department it business analyst. Comparisons: None FINDINGS: Uterus measures 11.4 x 7.0 x 5.4 cm. Endometrium measures 2 cm in thickness. Right ovary measures 4.0 x 3.8 x 1.6 cm. There is a follicle within the right ovary measuring approximately 3.2 cm. Left ovary measures 2.0 x 1.4 x 1.2 cm. Basilar flow identified within the ovaries bilaterally. IMPRESSION: 1. Follicle within the right ovary. Ovaries otherwise have a normal sonographic appearance 2. Endometrial thickening. Correlate with recent endometrial biopsy. Electronically signed by: Morris Winn MD (01/05/2020 3:39 PM) [id number] DICTATED AND SIGNED BY: MORRIS WINN MD DATE: 01/05/20 1539 CC: LEONARDO ESPINOSA MD; BRAIN KEARNEY DO ~ Course & Med Decision Making: Course & Med Decision Making Pertinent Labs and Imaging studies reviewed. (See chart for details) [] Dragon Disclaimer: Dragon Disclaimer: This electronic medical record was generated, in whole or in part, using a voice recognition dictation system. Departure Departure: Impression: Primary Impression: Left flank pain Additional Impressions: UTI (urinary tract infection) Ovarian cyst Disposition: 01 HOME, SELF-CARE Condition: STABLE Referrals: LEONARDO ESPINOSA MD (PCP) PLEASE FOLLOW UP WITH YOUR DOCTOR NEXT WEEK. Patient Instructions: Flank Pain, Urinary Tract Infection Scripts Levofloxacin (LEVAQUIN) 750 Mg Tablet 1 TAB PO DAILY for UTI for 7 Days, #7 TAB 0 Refills Prov: BRAIN KEARNEY DO 01/05/20 BRAIN KEARNEY DO Jan 05, 2020 14:14
[2020-01-05] MEDS ORDERED: KETOROLAC 30 MG/ML VIAL. IVP ONE (14:15)
--- NOTE | 2020-01-05 14:44 | RAD ---
Examination: CT of the abdomen pelvis without contrast HISTORY: History of left flank pain COMPARISON: None available Technique: Axial CT images of the abdomen pelvis were performed without contrast. Coronal and Sagittal reformats performed. Exposure: One or more of the following individualized dose reduction techniques were utilized for this examination: 1. Automated exposure control 2. Adjustment of the mA and/or kV according to patient size 3. Use of iterative reconstruction technique FINDINGS: Minimal bibasilar lung atelectasis. No evidence of free air identified. The evaluation of the solid organs is limited due to lack of IV contrast. The evaluation of bowel is limited due to lack of oral contrast. The noncontrasted liver, spleen, adrenals grossly appears unremarkable. Cholecystectomy clips identified. The stomach is mildly distended with visualized pancreas grossly appears unremarkable. The small bowel is nondilated. The appendix is normal. Feces and gas noted in the colon. The urinary bladder is mildly distended. No evidence of intraluminal system calculi or hydronephrosis identified. Cystic structure identified in the right adnexa measuring 3.2 cm in the right adnexa. Lumbar hardware is identified. Mild degenerative disease identified in the lumbar spine. Screws identified transfixing the right SI joint, left sacrum. IMPRESSION: 1. No evidence of intrarenal collecting system calculi or hydronephrosis. 2. 3.2 cm cystic structure identified in the right adnexa could be a right ovarian cyst or cystic lesion. Recommend ultrasound pelvis for better evaluation. Electronically signed by: David Mccrary MD (01/05/2020 2:41 PM) [id number]
[2020-01-05 15:28] LABS: CLARITY,URINE CLEAR
[2020-01-05 15:30] LABS: BILIRUBIN,URINE NEG (NEG); GLUCOSE,URINE NEG (NEG)
[2020-01-05 15:31] LABS: COLOR,URINE STRAW; NITRITE,URINE NEG (NEG); RBC,URINE 0 /HPF (0-2); UROBILINOGEN,URINE 0.2 mg/dL (0.2 mg/dL); WBC,URINE 20-40 /HPF (0-4)
[2020-01-05 15:32] LABS: BACTERIA,URINE MOD /HPF (0-FEW); SQUAMOUS EPITHELIAL CELL,UR MOD /LPF
--- NOTE | 2020-01-05 15:42 | RAD ---
Exam: Ultrasound pelvis Indication: Abdominal pain, right adnexal mass noted on CT scan today Technique: Real-time grayscale and color Doppler images of the pelvis were obtained by the department curator of manuscripts. Comparisons: None FINDINGS: Uterus measures 11.4 x 7.0 x 5.4 cm. Endometrium measures 2 cm in thickness. Right ovary measures 4.0 x 3.8 x 1.6 cm. There is a follicle within the right ovary measuring approximately 3.2 cm. Left ovary measures 2.0 x 1.4 x 1.2 cm. Basilar flow identified within the ovaries bilaterally. IMPRESSION: 1. Follicle within the right ovary. Ovaries otherwise have a normal sonographic appearance 2. Endometrial thickening. Correlate with recent endometrial biopsy. Electronically signed by: Morris Pink MD (01/05/2020 3:39 PM) [id number]
[2020-01-05] MEDS ORDERED: LEVO750T31 PO (16:44)
[2020-01-05 17:15] VITALS: BP 105/38
== END 2020-01-05 17:27 | disposition home or self-care (01) ==
LOC: ER 13:02
DX: N39.0 Urinary tract infection, site not specified (principal); N83.201 Unspecified ovarian cyst, right side; G89.29 Other chronic pain; Z87.442 Personal history of urinary calculi; Z88.0 Allergy status to penicillin
CPT/HCPCS: 36415; 74176; 76856; 80053; 81001; 83690; 85025; 87086; 96365; 96366; 96375; 99285; J1885; J1956; J7030

== ENCOUNTER → 2021-05-02 | Outpatient (CLI) | payer BC, OTHER ==
[~2021-05-02] MED LIST changes: +LEVO750T31 PO
--- NOTE | 2021-05-02 10:31 | RAD ---
EXAM: Bilateral digital screening mammogram with tomosynthesis. HISTORY: 51-year-old female presents for screening mammography. TECHNIQUE: Full-field digital craniocaudal and mediolateral oblique 2D and 3D tomosynthesis images of both breasts are obtained for evaluation. Computer aided detection was applied. COMPARISON: 05/13/2018 BREAST PARENCHYMAL DENSITY: Level C - Heterogeneously dense. FINDINGS: There is no new suspicious mass, microcalcification or region of architectural distortion. IMPRESSION: BI-RADS Category 2: Benign finding(s). RECOMMENDATION: Annual mammography is recommended. If your mammogram demonstrates that you have dense breast tissue, which could hide abnormalities, and if you have other risk factors for breast cancer that have been identified, you might benefit from s upplemental screening tests that may be suggested by your ordering physician. Dense breast tissue, i n and of itself, is a relatively common condition. This information is not provided to cause undue c oncern, but rather to raise your awareness and to promote discussion with your physician regarding th e presence of other risk factors, in addition to dense breast tissue. A report of your mammography re sults will be sent to you and your physician. You should contact your physician if you have any ques tions or concerns regarding this report. Mammography is a sensitive method for finding small breast cancers, but it does not detect them all a nd is not a substitute for careful clinical examination. A negative mammogram does not negate a clin ically suspicious finding and should not result in delay in biopsying a clinically suspicious abnorma lity. PQRS compliance statement - Patient information was entered into a reminder system with a target due date for the next mammogram. "Our facility is accredited by the [employer] Mammography Program." Electronically signed by: Sharron Schwartz MD (05/02/2021 10:29 AM) [id number]
== END ==
LOC: MAMMO 09:19
PROVIDERS: ATTEND Family Medicine
DX: Z12.31 Encounter for screening mammogram for malignant neoplasm of breast (principal)
CPT/HCPCS: 77063; 77067

== ENCOUNTER → 2021-08-15 | Outpatient (CLI) | payer BC, OTHER ==
--- NOTE | 2021-08-16 07:52 | RAD ---
XR SHOULDER_RIGHT 2+ VIEWS 08/15/2021 1:57 PM INDICATION: Right shoulder pain COMPARISON: None available. TECHNIQUE: 3 views the right shoulder are provided. FINDINGS/ IMPRESSION: Path There is no acute fracture or dislocation. Mild acromioclavicular osteoarthrosis. Glenohumeral j oint is well aligned. Bone mineralization is within normal limits. Regional soft tissues are within n ormal limits. There is no soft tissue gas or osseous erosion. No radiopaque foreign body. Electronically signed by: Aleta Ch MD (08/16/2021 7:50 AM) [id number]
== END ==
LOC: RAD 13:45
PROVIDERS: ATTEND Physician Assistant
DX: M19.011 Primary osteoarthritis, right shoulder (principal)
CPT/HCPCS: 73030